=== PATIENT | male | born 1965 | race Caucasian/White ===

== ENCOUNTER 2017-01-17 18:00 | Emergency (ER) | payer OTHER ==
[2017-01-17 18:58] VITALS: BP 149/86
--- NOTE | 2017-01-17 19:20 | UC ---
Shoulder Pain HPI - HPI Summary HPI Summary: worsening left shoulder pain this week--has been doing light duty at work unable to lift and hold up right arm---no specific injury - History of Current Complaint Chief Complaint: UCUpperExtremity Stated Complaint: LEFT SHOULDER PAIN Time Seen by Provider: 01/17/17 19:15 Hx Obtained From: Patient Onset/Duration: Gradual Onset, Lasting Days, Worse Since - past 2-3 days Timing: Constant Severity Initially: Moderate Severity Currently: Moderate Location Of Pain: Is Discrete @ - left shoulder Pain Intensity: 10 Pain Scale Used: 0-10 Numeric Character: Aching, Throbbing Aggravating Factor(s): Movement Alleviating Factor(s): Nothing Associated Signs And Symptoms: Positive: Weakness Related History: Dominant Hand Right - Allergies/Home Medications Allergies/Adverse Reactions: Allergies Allergy/AdvReac Type Severity Reaction Status Date / Time Bee Venom Allergy Anaphylatic Verified 01/17/17 18:52 Shock Home Medications: Home Medications Cholecalciferol TAB* [Vitamin D TAB*] 1,000 unit PO DAILY 01/17/17 [History Confirmed 01/17/17] Cyanocobalamin TAB* [Vitamin B12 TAB*] 500 mcg PO DAILY 01/17/17 [History Confirmed 01/17/17] PMH/Surg Hx/FS Hx/Imm Hx Previously Healthy: Yes - Surgical History Surgical History: Yes Surgery Procedure, Year, and Place: Tonsillectomy, 1982, [facility] [place] - Family History Known Family History: Positive: Other - daughter has Otits externa - Social History Occupation: Employed Full-time Lives: With Family Alcohol Use: None Substance Use Type: None Substance Use Comment - Amount & Last Used: rare use- maybe a couple times a year Smoking Status (MU): Heavy Every Day Tobacco Smoker Type: Cigarettes Amount Used/How Often: 1/2 PPD Length of Time of Smoking/Using Tobacco: 35 Years Have You Smoked in the Last Year: Yes Household Exposure Type: Cigarettes Review of Systems Constitutional: Negative Skin: Negative Eyes: Negative ENT: Negative Respiratory: Negative Cardiovascular: Negative Gastrointestinal: Negative Genitourinary: Negative Motor: Negative Neurovascular: Negative Musculoskeletal: Arthralgia - left shoulder, Decreased ROM - left shoulder, Myalgia - left shoulder Neurological: Negative Psychological: Negative All Other Systems Reviewed And Are Negative: Yes Physical Exam Triage Information Reviewed: Yes Appearance: Well-Appearing, Well-Nourished, Pain Distress Vital Signs: Initial Vital Signs Temp 98.9 F 01/17/17 18:48 Pulse 90 01/17/17 18:48 Resp 16 01/17/17 18:48 BP 149/86 01/17/17 18:48 Vital Signs Reviewed: Yes Eye Exam: Normal Eyes: Positive: Conjunctiva Clear ENT Exam: Normal ENT: Positive: Normal ENT inspection, Hearing grossly normal. Negative: Nasal congestion, Nasal drainage, Trismus, Muffled/hoarse voice Dental Exam: Normal Neck exam: Normal Neck: Positive: Supple, Nontender, No Lymphadenopathy Respiratory Exam: Normal Respiratory: Positive: Chest non-tender, Lungs clear, Normal breath sounds, No respiratory distress, No accessory muscle use Cardiovascular Exam: Normal Cardiovascular: Positive: RRR, No Murmur, Pulses Normal, Brisk Capillary Refill Musculoskeletal Exam: Normal Musculoskeletal: Positive: No Edema, Strength Limited @ - left shoulder, ROM Limited @ - left shoulder Neurological Exam: Normal Neurological: Positive: Alert, Muscle Tone Normal Psychological Exam: Normal Skin Exam: Normal Diagnostics - Laboratory Diagnostic Studies Completed/Ordered: calcific tendonitis left shoulder Shoulder Course/Dx - Course Assessment/Plan: rice, sling, ibuprofen, light duty, follow with ortho - Differential Dx/Diagnosis Differential Diagnosis/HQI/PQRI: Bursitis, Puncture Wound, Rotator Cuff Injury, Sprain, Strain, Tendonitis Provider Diagnoses: Calcific tendonitis left shoulder Discharge - Discharge Plan Condition: Stable Disposition: HOME Prescriptions: Ibuprofen TAB* [Motrin TAB* 600 MG] 600 mg PO Q6H PRN #60 tab PRN Reason: Pain Patient Education Materials: Calcific Tendinitis (ED) Forms: *Work Release Referrals: Kristopher Ellison MD [Medical Doctor] - 2 Days Keagan York DO [Primary Care Provider] -
--- NOTE | 2017-01-17 19:51 | RAD ---
Indication: Superior and lateral LEFT shoulder pain and limited range of motion over the past week with worsening. Comparison: None. Technique: Internal and external rotation AP and scapular Y views LEFT shoulder Report: Normal acromioclavicular and glenohumeral joint alignment. Negative for fracture. Moderate burden of amorphous calcification at the level of the supraspinatus and infraspinatus tendons consistent with calcific tendinopathy. Unremarkable soft tissue contours. IMPRESSION: Calcific tendinopathy of the rotator cuff.
== END 2017-01-17 19:53 | disposition home or self-care (01) ==
LOC: UCCORT 18:00
DX: M75.32 Calcific tendinitis of left shoulder (principal); F17.210 Nicotine dependence, cigarettes, uncomplicated
CPT/HCPCS: 99213; G0463

== ENCOUNTER 2018-07-05 09:46 | Emergency (ER) | payer OTHER ==
[2018-07-05 10:04] VITALS: BP 133/73
[2018-07-05] MEDS ORDERED: Cephalexin CAP* 500 MG PO ONE (10:14)
--- NOTE | 2018-07-05 10:15 | UC ---
Lower Extremity/Ankle HPI - HPI Summary HPI Summary: The patient is a 52-year-old male that presents here for evaluation of the left great toe infection. The infection occurred after clipping his toenails. There is no drainage of pus. He has been soaking his toe. - History of Current Complaint Chief Complaint: UCLowerExtremity Stated Complaint: LEFT FOOT COMPLAINT Time Seen by Provider: 07/05/18 09:53 Hx Obtained From: Patient Onset/Duration: Gradual Onset, Lasting Days Severity Initially: Mild Severity Currently: Severe Pain Intensity: 8 - 0 at rest Pain Scale Used: 0-10 Numeric Aggravating Factor(s): Standing, Ambulation Alleviating Factor(s): Rest Able to Bear Weight: Yes - Allergies/Home Medications Allergies/Adverse Reactions: Allergies Allergy/AdvReac Type Severity Reaction Status Date / Time bee venom protein (honey bee) Allergy Anaphylatic Verified 07/05/18 10:00 Shock PMH/Surg Hx/FS Hx/Imm Hx Previously Healthy: Yes Cancer History: Prostate Cancer - Surgical History Surgical History: Yes Surgery Procedure, Year, and Place: Tonsillectomy, 1982, [facility] [place] - Family History Known Family History: Positive: Hypertension, Other - daughter has Otits externa - Social History Alcohol Use: Rare Substance Use Type: None Substance Use Comment - Amount & Last Used: rare use- maybe a couple times a year Smoking Status (MU): Heavy Every Day Tobacco Smoker Type: Cigarettes Amount Used/How Often: 1/2 PPD Length of Time of Smoking/Using Tobacco: 35 Years Have You Smoked in the Last Year: Yes Household Exposure Type: Cigarettes Review of Systems Constitutional: Negative Skin: Negative Eyes: Negative ENT: Negative Respiratory: Negative Cardiovascular: Negative Gastrointestinal: Negative Genitourinary: Negative Motor: Negative Neurovascular: Negative Musculoskeletal: Negative Neurological: Negative Psychological: Negative Is Patient Immunocompromised?: No All Other Systems Reviewed And Are Negative: Yes Physical Exam Triage Information Reviewed: Yes Appearance: Well-Appearing, No Pain Distress, Well-Nourished Vital Signs: Initial Vital Signs Temp 98.9 F 07/05/18 09:58 Pulse 92 07/05/18 09:58 Resp 16 07/05/18 09:58 BP 133/73 07/05/18 09:58 Pulse Ox 97 07/05/18 09:58 Vital Signs Reviewed: Yes Eyes: Positive: Conjunctiva Clear ENT: Positive: Hearing grossly normal. Negative: Nasal congestion, Nasal drainage, Trismus, Muffled voice, Hoarse voice Neck: Positive: Nontender, No Lymphadenopathy Respiratory: Positive: Lungs clear, Normal breath sounds, No respiratory distress, No accessory muscle use Cardiovascular: Positive: RRR, No Murmur Musculoskeletal: Positive: Strength Intact, ROM Intact Neurological Exam: Normal Neurological: Positive: Alert Psychological Exam: Normal Skin Exam: Other - Left great toe exam: Redness and edema lateral nail border. It is no granuloma. It is no subungual pus. Patient had trimmed back his nail and I see no ingrown nail. Lower Extremity Course/Dx - Differential Dx/Diagnosis Provider Diagnoses: Cellulitis left great toe Discharge - Sign-Out/Discharge Documenting (check all that apply): Patient Departure - Discharge Plan Condition: Stable Disposition: HOME Prescriptions: Cephalexin CAP* [Keflex CAP*] 500 mg PO QID #28 cap Patient Education Materials: Cellulitis (ED) Referrals: Angelique Sanchez [Primary Care Provider] - If Needed Additional Instructions: warm epsom salt soaks recheck for new or worsening symptoms - Billing Disposition and Condition Condition: STABLE Disposition: Home
== END 2018-07-05 10:22 | disposition home or self-care (01) ==
LOC: UCCORT 09:46
DX: L03.032 Cellulitis of left toe (principal); Z85.46 Personal history of malignant neoplasm of prostate; F17.210 Nicotine dependence, cigarettes, uncomplicated
CPT/HCPCS: 99212; A9270-GY; G0463

== ENCOUNTER 2018-07-06 17:07 | Emergency (ER) | payer OTHER ==
[2018-07-06 17:50] VITALS: BP 154/87
--- NOTE | 2018-07-06 18:18 | UC ---
Lower Extremity/Ankle HPI - HPI Summary HPI Summary: Pt returns to clinic with concern for worsening toe/ingrown nail infection. Pt was seen yesterday and was given oral keflex and instructed to soak toe in warm water and epsom salts. Pt states that he thinks area around ingrown nail is more red. Pt reports that he was mowing his lawn today for several hours and stood for prolonged period of time. - History of Current Complaint Chief Complaint: UCSkin Stated Complaint: INFECTED TOE Time Seen by Provider: 07/06/18 18:12 Hx Obtained From: Patient Onset/Duration: Gradual Onset, Lasting Days, Still Present, Worse Since - onset Severity Initially: Mild Severity Currently: Severe Pain Intensity: 9 Aggravating Factor(s): Standing, Ambulation Alleviating Factor(s): Elevation, Nothing Able to Bear Weight: Yes - Risk Factors Gout Risk Factors: Age Over 40, Male DVT Risk Factors: Negative Septic Arthritis Risk Factor: Negative - Allergies/Home Medications Allergies/Adverse Reactions: Allergies Allergy/AdvReac Type Severity Reaction Status Date / Time bee venom protein (honey bee) Allergy Anaphylatic Verified 07/05/18 10:00 Shock PMH/Surg Hx/FS Hx/Imm Hx Previously Healthy: Yes - Surgical History Surgical History: Yes Surgery Procedure, Year, and Place: Tonsillectomy, 1982, [facility] [place] - Family History Known Family History: Positive: Hypertension, Other - daughter has Otits externa - Social History Occupation: Employed Full-time Lives: With Family Alcohol Use: Rare Substance Use Type: None Substance Use Comment - Amount & Last Used: rare use- maybe a couple times a year Smoking Status (MU): Heavy Every Day Tobacco Smoker Type: Cigarettes Amount Used/How Often: 1/2 PPD Length of Time of Smoking/Using Tobacco: 35 Years Have You Smoked in the Last Year: Yes Household Exposure Type: Cigarettes Review of Systems Constitutional: Negative Skin: Other - erythema,, swelling, ingrown toenail Eyes: Negative ENT: Negative Respiratory: Negative Cardiovascular: Negative Gastrointestinal: Negative Genitourinary: Negative Motor: Negative Neurovascular: Negative Musculoskeletal: Arthralgia, Edema Neurological: Negative Psychological: Negative Is Patient Immunocompromised?: No All Other Systems Reviewed And Are Negative: Yes Physical Exam Triage Information Reviewed: Yes Appearance: Pain Distress Vital Signs: Initial Vital Signs Temp 99.2 F 07/06/18 17:44 Pulse 102 07/06/18 17:44 Resp 16 07/06/18 17:44 BP 154/87 07/06/18 17:44 Pulse Ox 98 07/06/18 17:44 Vital Signs Reviewed: Yes Eye Exam: Normal ENT: Positive: Hearing grossly normal Neck exam: Normal Respiratory Exam: Normal Cardiovascular: Positive: Tachycardia Musculoskeletal: Positive: Edema @ - mild but painful swelling to left great toe , lateral aspect, mild erythema, ~ 7-9 mm from base of toe nail Neurological Exam: Normal Psychological Exam: Normal Skin Exam: Other - ingrown toe nail, mild sweling, c/o tenderness at site. Lower Extremity Course/Dx - Course Course Of Treatment: I discussed wiht the pt the need to continue with medication prescribed and to continue to soak toe/foot. Pt was also given instructions on s/sx of worsening infection. Pt verbalized understanding and agreed to plan of care. - Differential Dx/Diagnosis Differential Diagnosis/HQI/PQRI: Infection Provider Diagnoses: ingrown toe nail left great toe. infection left great toe Discharge - Sign-Out/Discharge Documenting (check all that apply): Patient Departure - Discharge Plan Condition: Stable Disposition: HOME Patient Education Materials: Ingrown Nail (ED) Referrals: Angelique Sanchez [Primary Care Provider] - Additional Instructions: PLEASE FOLLOW UP WITH OUR PCP NEEDED. WE HAVE PROVIDED YOU A NAME OF A WELDING MANAGER WELL. PLEASE FOLLOW UP SOON POSSIBLE. PLEASE MONITOR WORSENING INFECTION THAT INCLUDES BUT NOT LIMITED TO INCREASED REDNESS, PAIN, FEVER, CHILLS, RED STREAKING FROM WOUND PUSTULAR DISCHARGE. PLEASE KEEP SOAKING YOUR TOE IN WARM WATER AND EPSOM SALTS. ADDITIONALLY, PLEASE PLACE BANDAGE AROUND WOUND TO KEEP IT CLEAN AND TO REDUCE PRESSURE ON AFFECTED AREA. - Billing Disposition and Condition Condition: STABLE Disposition: Home
== END 2018-07-06 18:35 | disposition home or self-care (01) ==
LOC: UCCORT 17:07
DX: L60.0 Ingrowing nail (principal); L08.9 Local infection of the skin and subcutaneous tissue, unspecified; F17.210 Nicotine dependence, cigarettes, uncomplicated
CPT/HCPCS: 99211; G0463

== ENCOUNTER 2018-12-26 07:58 | Emergency (ER) | payer OTHER ==
[2018-12-26 08:36] VITALS: BP 130/90
--- NOTE | 2018-12-26 09:40 | ED ---
Respiratory - HPI Summary HPI Summary: 53 yr old male with the complaint of runny nose, sore throat, muscle aches, coughing, fatigue, chills. Onset of symptoms two days ago. No SOB. The patient has several colleagues who have tested positive for Influenza at his work. No other complaints. - History of Current Complaint Chief Complaint: UCGeneralIllness Stated Complaint: ST,PERKINS,FEVER Time Seen by Provider: 12/26/18 09:31 Pain Intensity: 5 - Allergy/Home Medications Allergies/Adverse Reactions: Allergies Allergy/AdvReac Type Severity Reaction Status Date / Time bee venom protein (honey bee) Allergy Anaphylatic Verified 12/26/18 08:31 Shock Home Medications: Home Medications D-Methorphan/PE/Acetaminophen [[place] Plus Day Col] 1 cap PO ONCE [History Confirmed 12/26/18] PMH/Surg Hx/FS Hx/Imm Hx - Cancer History Cancer Type, Location and Year: PROSTATE CANCER 2017 - Surgical History Surgery Procedure, Year, and Place: Tonsillectomy, 1982, [facility] [place]. Prostate removed , 08/2018 Infectious Disease History: No Infectious Disease History: Denies: Traveled Outside the [place] in Last 30 Days - Family History Known Family History: Positive: Hypertension, Other - daughter has Otits externa - Social History Occupation: Employed Full-time Lives: With Family Alcohol Use: None Substance Use Type: Reports: None Substance Use Comment - Amount & Last Used: rare use- maybe a couple times a year Smoking Status (MU): Former Smoker Type: Cigarettes Amount Used/How Often: 1/2 PPD Length of Time of Smoking/Using Tobacco: 35 Years Have You Smoked in the Last Year: Yes Review of Systems Positive: Chills, Fatigue Positive: Sore Throat, Nasal Discharge Positive: Cough All Other Systems Reviewed And Are Negative: Yes Physical Exam Triage Information Reviewed: Yes Vital Signs On Initial Exam: Initial Vitals Temp Pulse Resp BP Pulse Ox 98.2 F 118 16 130/90 98 12/26/18 08:32 12/26/18 08:32 12/26/18 08:32 12/26/18 08:32 12/26/18 08:32 Vital Signs Reviewed: Yes Appearance: Positive: Well-Appearing, No Pain Distress Skin: Positive: Warm, Skin Color Reflects Adequate Perfusion Head/Face: Positive: Normal Head/Face Inspection Eyes: Positive: EOMI, MAREN ENT: Positive: Pharyngeal erythema, Nasal congestion, TMs normal Neck: Positive: Nontender Respiratory/Lung Sounds: Positive: Clear to Auscultation, Breath Sounds Present Cardiovascular: Positive: RRR. Negative: Murmur Abdomen Description: Negative: Distended Musculoskeletal: Positive: Strength/ROM Intact Neurological: Positive: Normal, Sensory/Motor Intact, Alert, Oriented to Person Place, Time, CN Intact II-III Psychiatric: Positive: Normal - [place] Coma Scale Best Eye Response: 4 - Spontaneous Best Motor Response: 6 - Obeys Commands Best Verbal Response: 5 - Oriented Coma Scale Total: 15 Diagnostics - Vital Signs Vital Signs Temp Pulse Resp BP Pulse Ox 12/26/18 08:32 98.2 F 118 16 130/90 98 - Laboratory Lab Statement: Any lab studies that have been ordered have been reviewed, and results considered in the medical decision making process. Disposition - Course Course Of Treatment: 53 yr old with influenza symptoms and exposures to multiple cases at work. - Diagnoses Provider Diagnoses: Influenza, Hypertension Discharge - Sign-Out/Discharge Documenting (check all that apply): Patient Departure All imaging exams completed and their final reports reviewed: No Studies - Discharge Plan Condition: Good Disposition: HOME Prescriptions: Oseltamivir CAP* [Tamiflu CAP*] 75 mg PO BID #10 cap Patient Education Materials: Hypertension (ED), Influenza (ED) Referrals: Angelique Sanchez [Primary Care Provider] - 2 Days - Billing Disposition and Condition Condition: GOOD Disposition: Home
[2018-12-26 09:41] LABS: Influenza A Molecular POSITIVE (Negative)
== END 2018-12-26 09:57 | disposition home or self-care (01) ==
LOC: UCCORT 07:58
DX: J11.1 Influenza due to unidentified influenza virus with other respiratory manifestations (principal); I10 Essential (primary) hypertension; Z91.030 Bee allergy status; Z87.891 Personal history of nicotine dependence
CPT/HCPCS: 99212; G0463

== ENCOUNTER 2020-01-07 18:09 | Emergency (ER) | payer OTHER ==
[2020-01-07 19:49] VITALS: BP 170/87
[2020-01-07] MEDS ORDERED: Sulfamethox/Trimethoprim DS 800/160* TAB PO ONE (20:14)
--- NOTE | 2020-01-07 20:19 | UC ---
Hand/Wrist HPI - HPI Summary HPI Summary: Question foreign body from metal cable left hand. Swelling and redness noted at time of triage. - History Of Current Complaint Chief Complaint: UCSkin Stated Complaint: WC- LT HAND SKIN INJURY Time Seen by Provider: 01/07/20 19:43 Hx Obtained From: Patient ?: No Onset/Duration: Sudden Onset, Lasting Days Severity Initially: Moderate Severity Currently: Moderate Pain Intensity: 3 Character Of Pain: Aching, Stiffness Aggravating Factor(s): Movement Alleviating Factor(s): Nothing Associated Signs And Symptoms: Positive: Swelling, Redness - Allergies/Home Medications Allergies/Adverse Reactions: Allergies Allergy/AdvReac Type Severity Reaction Status Date / Time bee venom protein (honey bee) Allergy Anaphylatic Verified 01/11/20 13:25 Shock Home Medications: Home Medications Cyanocobalamin TAB* [Vitamin B12 TAB*] 500 mcg PO QAM 01/17/17 [History Confirmed 01/07/20] Cholecalciferol (Vitamin D3) [Vitamin D3] 5,000 unit PO QAM 01/07/20 [History Confirmed 01/07/20] Sulfamethox/Trimethoprim DS* [Bactrim DS 800/160 TAB*] 1 tab PO BID #13 tab [Rx Confirmed 01/11/20] PMH/Surg Hx/FS Hx/Imm Hx Previously Healthy: Yes - Surgical History Surgical History: Yes Surgery Procedure, Year, and Place: Tonsillectomy, 1982, [facility]. Prostate removed , 08/2018 - Family History Known Family History: Positive: Hypertension, Other - Social History Alcohol Use: None Substance Use Type: None Substance Use Comment - Amount & Last Used: rare use- maybe a couple times a year Smoking Status (MU): Current Every Day Smoker Type: Cigarettes Amount Used/How Often: 1/2 PPD Length of Time of Smoking/Using Tobacco: 35 Years Have You Smoked in the Last Year: Yes When Did the Patient Quit Smoking/Using Tobacco: 07/2018 Household Exposure Type: Cigarettes Review of Systems All Other Systems Reviewed And Are Negative: Yes Skin: Positive: Other - redness Musculoskeletal: Positive: Arthralgia, Edema, Myalgia Is Patient Immunocompromised?: No Physical Exam Triage Information Reviewed: Yes Appearance: Well-Appearing, Well-Nourished, Pain Distress Vital Signs: Initial Vital Signs Temp 98.3 F 01/07/20 19:44 Pulse 89 01/07/20 19:44 Resp 20 01/07/20 19:44 BP 170/87 01/07/20 19:44 Pulse Ox 98 01/07/20 19:44 Eye Exam: Normal ENT Exam: Normal Neck exam: Normal Respiratory Exam: Normal Cardiovascular Exam: Normal Abdominal Exam: Normal Bowel Sounds: Positive: Present Musculoskeletal: Positive: Strength Intact, ROM Intact, Edema @ - area of soft tissue swelling an erythema on the left 2nd and 3rd knuckle, no eveidence of open wound or abraision Psychological Exam: Normal Skin: Positive: Other - erythema Hand/Wrist Course/Dx - Course Course Of Treatment: hx obtained, exam performed ,meds reviewed, xray obtained+ FB, medicated for cellulitis, put in a splint to immobilize and reduce irritation to area, referred to surgeon - Differential Dx/Diagnosis Differential Diagnosis/HQI/PQRI: Cellulitis, Foreign Body Provider Diagnosis: Cellulitis of left hand, Foreign body of left hand Discharge ED - Sign-Out/Discharge Documenting (check all that apply): Patient Departure All imaging exams completed and their final reports reviewed: No - Discharge Plan Condition: Stable Disposition: HOME Prescriptions: Sulfamethox/Trimethoprim DS* [Bactrim DS 800/160 TAB*] 1 tab PO BID #13 tab Patient Education Materials: Soft Tissue Foreign Body (ED), Cellulitis (ED) Referrals: Mook Goncalves MD [Primary Care Provider] - Nieves Hickman MD [Medical Doctor] - Additional Instructions: 1. take the medication as prescribed and follow up with the hand surgeon in the morning. - Billing Disposition and Condition Condition: STABLE Disposition: Home - Attestation Statements Provider Attestation: I was available for consult. This patient was seen by the MEGHAN. The patient was not presented to, seen by, or examined by me. -Shwetha
--- NOTE | 2020-01-08 07:59 | UC ---
- Progress Note Progress Note: Reviewed radiology reading of soft tissue left hand. Per Dr. Pinto: + 8mm metallic foreign body seen. Is on antibiotics and has referral to surgery. Course/Dx - Diagnoses Provider Diagnoses: Cellulitis of left hand, Foreign body of left hand Discharge ED - Sign-Out/Discharge Documenting (check all that apply): Post-Discharge Follow Up All imaging exams completed and their final reports reviewed: Yes - Discharge Plan Condition: Stable Disposition: HOME Prescriptions: Sulfamethox/Trimethoprim DS* [Bactrim DS 800/160 TAB*] 1 tab PO BID #13 tab Patient Education Materials: Soft Tissue Foreign Body (ED), Cellulitis (ED) Referrals: Mook Goncalves MD [Primary Care Provider] - Nieves Hickman MD [Medical Doctor] - Additional Instructions: 1. take the medication as prescribed and follow up with the hand surgeon in the morning. - Billing Disposition and Condition Condition: STABLE Disposition: Home
== END 2020-01-07 20:31 | disposition home or self-care (01) ==
LOC: UCCORT 18:09
DX: S60.552A Superficial foreign body of left hand, initial encounter (principal); L03.114 Cellulitis of left upper limb; F17.210 Nicotine dependence, cigarettes, uncomplicated; Z91.030 Bee allergy status; W45.8XXA Other foreign body or object entering through skin, initial encounter; Y92.9 Unspecified place or not applicable
CPT/HCPCS: 99213; A9270-GY; G0463

== ENCOUNTER 2020-01-12 12:29 | Day surgery (SDC) | payer OTHER ==
--- NOTE | 2020-01-11 15:30 | HP ---
PREOPERATIVE HISTORY AND PHYSICAL: DATE OF ADMISSION/SURGERY: 01/12/20 - [facility] DATE OF OFFICE VISIT/ENCOUNTER: 01/11/20 ATTENDING SURGEON: Nieves Hickman MD * (DICTATED BY ELI GALVAN) PROCEDURE: Removal of foreign body, left hand. 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 He sustained injury to his left hand on 01/06/20 when he was working and pulling a cable. He suffered a puncture wound on the dorsal aspect of his left hand. He thinks that the cable broke in his hand. He initially saw Dr. Summers and had x-rays, which revealed a metal foreign body on the dorsal aspect of the left hand. He has been on oral antibiotics. He has had trouble moving his left index finger since the injury occurred. He does not complain of any numbness or tingling. After evaluation by Dr. Hickman, he has consented to proceed with surgical intervention to remove the foreign body. It is in an area that might be irritating his extensor tendon. PAST MEDICAL HISTORY: History of prostate cancer. PAST SURGICAL HISTORY: 1. Prostatectomy. 2. Tonsillectomy. 3. [place] teeth extraction. CURRENT MEDICATIONS: 1. Bactrim DS 800/160 mg 1 tab b.i.d. 2. Vitamin B12 daily. 3. Vitamin D3 Complete daily. ALLERGIES: No known drug allergies. Positive allergies to BEE STINGS. FAMILY MEDICAL HISTORY: Diabetes. 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 He is a current smoker, half a pack per day. He has done so for several years. He denies recreational drug use. He does not drink alcohol. REVIEW OF SYSTEMS: Negative for general, cephalic, cardiovascular, respiratory , GI, , other musculoskeletal, integumentary, endocrine, neurologic, and hematologic symptoms. Infectious Disease: Negative for MRSA, hepatitis C, HIV. PHYSICAL EXAMINATION GENERAL: A well-developed, well-nourished 54-year-old male, in no acute distress. VITAL SIGNS: Height 5 feet 8 inches, weight 180 pounds. Pulse rate 111, blood pressure 146/96. HEENT: Normocephalic, atraumatic. Pupils are equal, round, and reactive to light and accommodation. Extraocular movements are intact. Throat is clear. NECK: Supple. No palpable lymph nodes. PULMONARY: Lungs are clear to auscultation bilaterally. No wheezes, rales, or rhonchi. CARDIOVASCULAR: Regular rate and rhythm. S1, S2. No murmurs, rubs, or gallops. No edema. ABDOMEN: Positive bowel sounds. Soft, nontender. NEUROLOGICAL: Alert and oriented x3. Cranial nerves II through XII are intact. Sensation is intact to light touch. MUSCULOSKELETAL: On exam of his left hand, there is mild swelling and pain on the dorsal aspect of the index finger MP joint. Any range of motion of this finger is painful. He cannot make a full fist. He can extend his finger, but not fully. He has a lot of tenderness over the index finger MP joint. Neurovascular function is intact. IMAGING STUDIES: X-rays, AP, lateral, and oblique of the left hand show a metallic foreign body overlying the MP joint of the left index finger dorsally. IMPRESSION: Foreign body, left index finger. PLAN: The patient is scheduled to undergo a removal of foreign body, left hand , with Dr. Hickman on 01/12/20. He will return to the office 10 days postop for followup and suture removal. A prescription for tramadol was e-scribed to the patient's pharmacy for postoperative pain management. ELI GALVAN [id number]/[facility] #: [id number] JOVANY
[~2020-01-12 12:29] MED LIST: Buffered Lidocaine 1% SYRIN* 1 ML/SYRINGE INTRADERM ONE; Dexamethasone IV* 4 MG/ML 1 ML (4 MG) IV SLOW PU ONE; Famotidine IV* 10 MG/ML 2 ML (20 mg) IV ONE; Lactated Ringers 1000 ML Bag* 1,000 ML IV SCH
[2020-01-12] MEDS ORDERED: Famotidine IV* 10 MG/ML 2 ML (20 mg) ONE (12:56)
[2020-01-12] MEDS ORDERED: Dexamethasone IV* 4 MG/ML 1 ML (4 MG) ONE (12:56)
[2020-01-12] MEDS ORDERED: HYDROmorphone INJ1* 1 MG/ML SYRINGE IV PRN (13:17)
[2020-01-12] MEDS ORDERED: oxyCODONE TAB* 5 MG TAB PO PRN (13:17)
[2020-01-12] MEDS ORDERED: Naloxone* 0.4 MG/ML 1 ML VIAL IV PRN (13:17)
[2020-01-12] MEDS ORDERED: PROCHLORPERAZINE INJ 5 MG/ML 2 ML VIAL IV PRN (13:17)
[2020-01-12] MEDS ORDERED: DiMENhydriNATE IV* 50 MG/ML VIAL IV PUSH PRN (13:17)
[2020-01-12] MEDS ORDERED: fentaNYL* 50 MCG/ML 2 ML VIAL (100 MCG VIAL) IV PRN (13:17)
[2020-01-12] MEDS ORDERED: Midazolam* 1 MG/ML 5 ML VIAL (5 MG) ONE (13:33)
[2020-01-12] MEDS ORDERED: KETAMINE HCL* 50 MG/ML 10 ML VIAL ONE (13:33)
[2020-01-12] MEDS ORDERED: fentaNYL* 50 MCG/ML 2 ML VIAL (100 MCG VIAL) ONE (13:33)
[2020-01-12] MEDS ORDERED: Lidocaine 1% INJ* 10 MG/ML 30 ML SDV ONE (14:33)
[2020-01-12] MEDS ORDERED: Lidocaine 2% PF * 5 ML VIAL ONE (14:48)
[2020-01-12] MEDS ORDERED: Propofol* 10 MG/ML 20 ML BTL ONE (14:49)
[2020-01-12 15:05] VITALS: BP 128/76
--- NOTE | 2020-01-13 02:42 | OP ---
DATE OF OPERATION: 01/12/20 [facility] DATE OF : 63 SURGEON: Dr. Hickman. ENVIRONMENTAL HEALTH INSPECTOR: None. ANESTHESIA: Local MAC. PRE-OP DIAGNOSIS: Foreign body, left hand. POST-OP DIAGNOSIS: Foreign body, left hand. OPERATIVE PROCEDURE: Removal of foreign body, left hand. ESTIMATED BLOOD LOSS: Zero. TOURNIQUET TIME: 5 minutes. INDICATIONS FOR PROCEDURE: Terrence is a 54-year-old man who was at work at the [employer]. He was working on a cable and the cable broke and punctured his hand. The piece of cable broke off in his hand and the puncture wound sealed. He now has pain with extension of his finger and significant swelling and had developed cellulitis. This was treated with an oral antibiotic and the cellulitis has resolved, but he still has the foreign body and pain with range of motion of his finger. He presents for removal of foreign body, left hand. DESCRIPTION OF PROCEDURE: The patient was brought to the operative room and was given a sedation anesthetic and a local infiltration of 10 cc of 1% plain lidocaine on the dorsal aspect of the left hand. Skin of the left upper extremity was prepped and draped in the usual sterile fashion. The hand and forearm were exsanguinated and the tourniquet elevated to 250 mmHg. A 1 cm incision was made in the area of his tenderness, and with blunt dissection, we retrieved the metal foreign body. The wound was copiously irrigated with saline and the skin edges reapproximated with 4-0 nylon suture. The wound was dressed with Xeroform, 4x4, Webril, and an Ariel wrap. The patient tolerated the procedure well and was brought to the recovery room in good condition. [id number]/[facility] #: [id number] [facility]OSPITALEloisa
== END 2020-01-12 15:35 | disposition home or self-care (01) ==
LOC: OREAST 12:29
PROVIDERS: ATTEND Orthopaedic Surgery
DX: S61.442A Puncture wound with foreign body of left hand, initial encounter (principal); W20.8XXA Other cause of strike by thrown, projected or falling object, initial encounter; Y92.9 Unspecified place or not applicable; Y99.0 Civilian activity done for income or pay; Z85.46 Personal history of malignant neoplasm of prostate; F17.210 Nicotine dependence, cigarettes, uncomplicated
CPT/HCPCS: J1100; J2250; J2704; J3010